=== PATIENT | female | born 2000 ===

== ENCOUNTER 2021-05-28 08:54 | Outpatient (CLI) | payer MEDICAID ==
[2021-05-28 10:14] LABS: Hematocrit 32.9 % (30.3-42.9); Hemoglobin 11.1 gm/dl (10.1-14.3); Mean Corpuscular HGB Conc 34 % (30-34); Mean Corpuscular Volume 90 fl (79-97); Platelet Count 235 K/mm3 (140-440); Red Blood Count 3.68 M/mm3 (3.65-5.03); Red Cell Distribution Width 14.8 % (13.2-15.2)
[2021-05-28 10:19] LABS: Bacteria,Urine 1+ /HPF (Negative); Bilirubin,Urine NEG (Negative); Blood,Urine NEG (Negative); Color,Urine Yellow (Yellow); Mucus,Urine FEW /HPF; Protein,Urine <15 mg/dL mg/dL (Negative); Urobilinogen,Urine < 2.0 mg/dL (<2.0); WBC,Urine < 1.0 /HPF (0.0-6.0)
[2021-05-28 10:38] LABS: Alanine Aminotransferase 13 units/L (7-56)
[2021-05-28 11:51] VITALS: BP 91/53
[2021-05-28] MEDS ORDERED: LACTATED RINGERS 500 ML IV ONE (12:52)
[2021-05-28] MEDS ORDERED: ACETAMINOPHEN 500 MG TAB PO ONE (12:52)
== END 2021-05-28 12:35 | disposition home or self-care (01) ==
LOC: TRG 08:54 → APU 08:55 → TRG 12:35
PROVIDERS: ATTEND Obstetrics & Gynecology
DX: Z34.93 Encounter for supervision of normal pregnancy, unspecified, third trimester (principal); Z3A.36 36 weeks gestation of pregnancy
CPT/HCPCS: 36415; 59025; 81001; 82565; 83615; 84450; 84460; 84550; 85027